=== PATIENT | male | born 1975 | race Caucasian/White ===

== ENCOUNTER 2020-01-22 18:55 | Emergency (ER) | payer OTHER ==
[2020-01-22 19:02] VITALS: BP 147/89; PULSE 69; TEMP 97.9; BMI 28.8
[2020-01-22] MEDS ORDERED: VANCOMYCIN 1,000 MG VIAL (RESTRICTED TO ID ONLY) ONE (20:04)
[2020-01-22] MEDS ORDERED: VANCOMYCIN 1,000 MG in DEXTROSE 5%-WATER - 250 ML IVPB ONE (20:05)
== END 2020-01-22 22:23 | disposition home or self-care (01) ==
LOC: FER 18:55
DX: L03.211 Cellulitis of face (principal)
CPT/HCPCS: 87070; 87186; 87205; 99284-25

== ENCOUNTER 2023-09-30 04:40 | Day surgery (SDC) | payer OTHER ==
[2023-09-27 13:19] VITALS: BMI 30.4
[2023-09-30 11:51] VITALS: TEMP 98.6
[2023-09-30 12:23] VITALS: BP 138/90; PULSE 67; RESP 20
== END 2023-09-30 12:35 | disposition home or self-care (01) ==
LOC: JASU-ENDO 04:40
PROVIDERS: ATTEND Internal Medicine Gastroenterology
PROC: 0DBK8ZX Excision of Ascending Colon, Via Natural or Artificial Opening Endoscopic, Diagnostic (ICD-10-PCS; principal; 2023-09-30 11:00)
DX: Z12.11 Encounter for screening for malignant neoplasm of colon (principal); K63.5 Polyp of colon; Z83.719 Family history of colon polyps, unspecified
CPT/HCPCS: 88305-TC